=== PATIENT | male | born 1945 | race Caucasian/White ===

== ENCOUNTER 2018-04-01 17:17 | Emergency (ER) | payer OTHER ==
[~2018-04-01 17:17] MED LIST: ISOVUE-370 76%-LOCM 1 ML ONE
--- NOTE | 2018-04-01 17:53 | RAD ---
FRONTAL RADIOGRAPH CHEST 04/01/18 COMPARISON: None. HISTORY: Chest pain. FINDINGS: Multiple old left sided inferior/lateral posterior rib fractures. No pneumothorax, pleural fluid, lob ar consolidation or alveolar edema. IMPRESSION: Multiple old left sided rib fractures. No acute findings. POS: [facility]
[2018-04-01 18:51] LABS: #Eosinphils 0.2 thou/uL (0.0-0.7); #Lymphocytes 1.2 thou/uL (1.20-3.40); #Monocytes 0.7 thou/uL (0.11-0.59); #Neutrophils 5.1 thou/uL (1.40-6.50); %Basophils 0.4 % (0.0-1.0); %Eosinophils 2.7 % (0.0-10.0); %Lymphocytes 16.6 % (21.0-51.0); %Monocytes 9.7 % (0.0-10.0); %Neutrophils 70.7 % (42.0-75.0); Hemoglobin 9.4 g/dL (14.0-18.0); Mean Corpuscular HGB CONC 32.3 g/dL (32.0-36.0); Mean Corpuscular Hemoglobin 30.6 pg (27.0-31.0); Mean Corpuscular Volume 94.8 fL (78.0-98.0); Mean Platelet Volume 9.1 fL (7.4-10.4); Platelet Count 183 thou/uL (130-400); Red Blood Cell (RBC) Count 3.08 mill/uL (4.70-6.10); White Blood Cell (WBC) Count 7.2 thou/uL (4.8-10.8)
[2018-04-01 19:15] LABS: ALT (SGPT) 14 U/L (8-55); AST (SGOT) 14 U/L (5-34); Albumin 3.9 g/dL (3.4-4.8); Alkaline Phosphatase 106 U/L (40-150); Anion Gap 12 mmol/L (10-20); BUN (Urea Nitrogen) 17 mg/dL (8.4-25.7); Bilirubin, Total 0.2 mg/dL (0.2-1.2); CK (CPK) 133 U/L (30-200); Calc. Creatinine Clearance 0 mL/min (70-130); Calcium 8.5 mg/dL (7.8-10.44); Carbon Dioxide 26 mmol/L (23-31); Chloride 94 mmol/L (98-107); Estimated GFR-MDRD 48; Globulin 2.3 g/dL (2.4-3.5); Glucose 122 mg/dL (83-110); Lipase 31 U/L (8-78); Potassium 4.7 mmol/L (3.5-5.1); Protein, Total 6.2 g/dL (5.8-8.1); Sodium 127 mmol/L (136-145)
[2018-04-01] MEDS ORDERED: Enoxaparin Sodium 100 MG/ML SYRINGE ONE (20:36)
--- NOTE | 2018-04-01 21:26 | CT ---
CT ANGIOGRAM OF THE CHEST: 04/01/18 COMPARISON: None. HISTORY: Chest pain. TECHNIQUE: Axial CT imaging at 2.5 mm intervals from the thoracic inlet through the upper abdomen with IV contra st using a CT angiogram protocol. Coronal and oblique sagittal 3D reformatted imaging obtained. FINDINGS: Cholelithiasis suspected on axial image 133. No pleural, pericardial, or mediastinal fluid. Atheroscl erotic calcification at the level of the aortic valve, aortic arch, and coronary arteries noted. No axillary, mediastinal, or hilar adenopathy. No central pulmonary arterial filling defect seen to suggests pulmonary arterial embolism. Motion art ifact limits detailed assessment of the distal pulmonary arteries, particularly in the lung bases. No pneumothorax seen on either side. Mild linear density in the lingula suggests scar and/or volume loss. Evaluation of bilateral lower lobes is limited on the basis of respiratory motion artifact. Linear de nsity in the medial inferior right middle lobe suggests scar and/or volume loss. There are multiple old left sided rib fractures. IMPRESSION: No evidence for pulmonary arterial embolism. Numerous additional findings as described above. POS: [facility]
--- NOTE | 2018-04-05 00:05 | EKG ---
Test Reason : ER INDICATION Blood Pressure : / mmHG Vent. Rate : 070 BPM Atrial Rate : 059 BPM P-R Int : 000 ms QRS Dur : 072 ms QT Int : 394 ms P-R-T Axes : 000 055 075 degrees QTc Int : 425 ms Poor data quality, interpretation may be adversely affected Atrial fibrillation with a competing junctional pacemaker Abnormal ECG Confirmed by SHYANN MARTINEZ, CAMILO ([id number]), movie editor TIFFANIE CARDONA ([id number]) on 04/05/2018 12:04:20 AM Referred By: Confirmed By:CAMILO BOOTHE MD
== END 2018-04-02 00:33 | disposition short-term general hospital (02) ==
LOC: ERS 17:17
DX: I20.0 Unstable angina (principal); J44.9 Chronic obstructive pulmonary disease, unspecified; I10 Essential (primary) hypertension; Z79.82 Long term (current) use of aspirin; Z79.899 Other long term (current) drug therapy
CPT/HCPCS: 36415; 71045; 71275; 80053; 82550; 83690; 83880; 84484; 85025; 85379; 93005; 96360; 96361; 96372; J1650

== ENCOUNTER 2018-06-01 06:28 | Inpatient (IN) | payer OTHER ==
[2018-06-01] MEDS ORDERED: Ketorolac Tromethamine 30 MG/ML VIAL ONE (07:01)
[2018-06-01] MEDS ORDERED: Nitroglycerin 2% Ointment 1 INCH/1 GM Packet ONE (07:01)
[2018-06-01 07:11] LABS: #Basophils 0.1 thou/uL (0.0-0.2); #Eosinphils 0.2 thou/uL (0.0-0.7); #Lymphocytes 1.5 thou/uL (1.20-3.40); #Monocytes 1.1 thou/uL (0.11-0.59); %Basophils 0.6 % (0.0-1.0); %Eosinophils 1.5 % (0.0-10.0); %Lymphocytes 14.2 % (21.0-51.0); %Monocytes 9.9 % (0.0-10.0); %Neutrophils 73.8 % (42.0-75.0); Hemoglobin 7.9 g/dL (14.0-18.0); Mean Corpuscular HGB CONC 32.8 g/dL (32.0-36.0); Mean Corpuscular Hemoglobin 29.2 pg (27.0-31.0); Mean Corpuscular Volume 89.1 fL (78.0-98.0); Mean Platelet Volume 8.2 fL (7.4-10.4); Platelet Count 213 thou/uL (130-400); RBC Distribution Width 12.5 % (11.5-14.5); Red Blood Cell (RBC) Count 2.71 mill/uL (4.70-6.10); White Blood Cell (WBC) Count 10.9 thou/uL (4.8-10.8)
[2018-06-01 07:31] LABS: ALT (SGPT) 17 U/L (8-55); AST (SGOT) 20 U/L (5-34); Albumin 3.8 g/dL (3.4-4.8); Alkaline Phosphatase 113 U/L (40-150); Anion Gap 11 mmol/L (10-20); BUN (Urea Nitrogen) 16 mg/dL (8.4-25.7); Bilirubin, Total 0.5 mg/dL (0.2-1.2); Calc. Creatinine Clearance 0 mL/min (70-130); Calcium 8.4 mg/dL (7.8-10.44); Carbon Dioxide 31 mmol/L (23-31); Chloride 81 mmol/L (98-107); Estimated GFR-MDRD 76; Globulin 2.4 g/dL (2.4-3.5); Glucose 100 mg/dL (83-110); Lipase 35 U/L (8-78); Potassium 3.7 mmol/L (3.5-5.1); Protein, Total 6.2 g/dL (5.8-8.1)
[2018-06-01 07:43] LABS: Bilirubin Negative (Negative); Blood, Urine Negative (Negative); Clarity CLEAR (Clear); Glucose, Urine (Dipstick) Negative (Negative); Leukocyte Moderate (Negative); Nitrite Negative (Negative); Protein, Urine (Dipstick) Negative (Neg-Trace); Specific Gravity, Urine 1.006 (1.002-1.036); Urobilinogen 0.2 mg/dL (0.2-1.0); pH, Urine 7.5 (5.0-9.0)
[2018-06-01 07:45] LABS: Sodium 119 mmol/L (136-145)
[2018-06-01 07:46] LABS: Bacteria/HPF 4+ HPF (None Seen); Hyaline Casts/LPF 0-3 HYALINE CAST LPF (0-3 Hyaline); RBC/HPF 0-3 HPF (0-3); Squamous Epithelial 0-3 HPF (0-3)
[2018-06-01] MEDS ORDERED: Ondansetron ODT 4 MG TAB PO PRN (08:41)
[2018-06-01] MEDS ORDERED: Acetaminophen 325 MG TAB PO PRN (08:41)
[2018-06-01] MEDS ORDERED: Zolpidem Tartrate 5 MG TAB PO PRN (08:41)
--- NOTE | 2018-06-01 08:46 | RAD ---
SINGLE VIEW OF THE CHEST: COMPARISON: 04/01/2018. HISTORY: Chest pain. FINDINGS: Single view of the chest shows a normal sized cardiomediastinal silhouette. There is no evidence of c onsolidation, mass, or pleural effusion. There are remote left rib fractures. IMPRESSION: No evidence of acute cardiopulmonary disease. POS: [facility]
[2018-06-01] MEDS ORDERED: Nitroglycerin 0.4 MG TAB (25 Tab Bottle) SL PRN (08:59)
[2018-06-01 09:25] LABS: Iron 37 ug/dL (65-175); Iron Binding Capacity, Total 315 mcg/dL (261-462)
--- NOTE | 2018-06-01 09:58 | HP ---
CHIEF COMPLAINT: City call admission for [facility]. The patient is a prisoner at a local [facility] facility. The patient referred to [facility] Hospitalist Service for chest pain, anemia, hypothyroidism. By history, his chest pain is a 7/10. It started at 2 a.m. He says it feels like a 6-pound paper weight on his chest. He has had chronic shortness of breath. No sweats. No radiation. PAST MEDICAL HISTORY: Pertinent for PCI x2 last 15 years ago for coronary artery disease. He has a history of atrial fib, history of COPD, history of hypertension. CURRENT MEDICATIONS: 1. Aspirin 81 mg a day. 2. Diltiazem 180 mg a day. 3. Dulera 100/5 two puffs b.i.d. 4. Omeprazole 20 mg a day. 5. Pravastatin 80 mg a day. 6. Proventil 2 puffs four times a day p.r.n. 7. Terazosin 2 mg a day. 8. Spiriva HandiHaler one puff daily. ALLERGIES: NO KNOWN DRUG ALLERGIES. PAST SURGICAL HISTORY: He has had a left cataract surgery x2 with implants, appendectomy, right knee arthroplastic surgery. FAMILY HISTORY: No coronary artery disease, hypertension, etc. The patient . No next of kin named. Full code status. He quit smoking 12 years ago, apparently at the time of his incarceration. He has had no alcohol. REVIEW OF SYSTEMS: HEAD: No headaches, dizziness, fever, chills. EYES: No double vision, blurred vision, flashing lights. EARS, NOSE, AND THROAT: He does have poor vision in his left eye post surgeries. CARDIAC: He has no recent chest pain other than that today. No orthopnea. No paroxysmal nocturnal dyspnea. RESPIRATIONS: Chronic shortness of breath. No cough. No wheezing. GASTROINTESTINAL: No nausea, vomiting, diarrhea, or constipation. GENITOURINARY: No hematuria, dysuria, or nocturia. MUSCULOSKELETAL: He has occasional leg cramps night and day. No other pain. He has some mild swelling in his legs. NEUROLOGICAL: No strokes, seizures, or focal weakness. PSYCHIATRIC: He gives no history of anxiety or depression. SKIN: No bruising, bleeding, or rash. HEME/LYMPH: No tender or swollen lymph nodes in the axilla, inguinal, or cervical area. PHYSICAL EXAMINATION: GENERAL: He is alert, fair historian, oriented to person, place, and time. VITAL SIGNS: Blood pressure 121/48, pulse 57, respirations 19. Pain is rated as 7. He has O2 saturation of 98 on 2 L. HEENT: Examination of his head, eyes, ears, nose, and throat reveals right pupil round and reactive. Left pupil is severely deformed, nonreactive. Extraocular movements are intact. Sclerae are white. Tympanic membranes are clear. Nose is clear. Oral mucous membranes are wet. He has multiple missing teeth and caries in the several teeth that are still present. NECK: No jugular venous distention, adenopathy, or thyromegaly. CHEST: Clear to auscultation and percussion. HEART: Has a regular rate and rhythm. First and second heart sounds are clear. There are no appreciated murmurs or gallops. ABDOMEN: Soft. Bowel sounds are normal. There is no hepatosplenomegaly. No mass. No rebound or bruits. EXTREMITIES: Reveal 1 to 2+ edema with no cyanosis or clubbing. HEME/LYMPH: No tender or swollen lymph nodes in axilla, inguinal, or cervical area. NEUROLOGICAL: Cranial nerves 2 through 12 are intact, except for the left pupillary response. Deep tendon reflexes symmetric. Moves all extremities. IMAGING STUDIES: Chest x-ray reviewed by me some hyperinflation, no cardiomegaly, some chronic appearing changes. No distinct mass. No infiltrates of note. There are evidence of healed fractured ribs on the left. EKG normal, reviewed by me. LABORATORY DATA: CBC; white count 10.9, hemoglobin 7.9 with normocytic normochromic indices, platelet count is 213,000. Urine showed 4 to 6 white cells. Sodium 119, potassium 3.7, chloride 81, BUN 16, creatinine 0.97. Liver profile normal. Cardiac enzyme normal. ADMITTING DIAGNOSES: Chest pain, history of coronary artery disease with percutaneous coronary intervention, hyponatremia, anemia, chronic obstructive pulmonary disease, hypertension. PLAN: Nitrates. Serial enzymes, probable eventual stress test. Serial H and H q.6 hours. Stool for occult blood. Repeat basic metabolic profile q.12 hours. Start normal saline at 75 mL an hour. Complicated patient. May need endoscopy studies as he is a prisoner. [facility] in [place] was called and declined to accept the patient. Job ID: [id number] [facility]
[2018-06-01 11:10] LABS: Troponin I Less than 0.010 ng/mL (< 0.028)
[2018-06-01 11:54] LABS: Anion Gap 10 mmol/L (10-20); BUN (Urea Nitrogen) 16 mg/dL (8.4-25.7); Calc. Creatinine Clearance 0 mL/min (70-130); Calcium 8.1 mg/dL (7.8-10.44); Carbon Dioxide 26 mmol/L (23-31); Chloride 84 mmol/L (98-107); Estimated GFR-MDRD 77; Glucose 100 mg/dL (83-110); Potassium 3.9 mmol/L (3.5-5.1)
[2018-06-01 11:59] LABS: Sodium 116 mmol/L (136-145)
[2018-06-01 15:13] LABS: Troponin I Less than 0.010 ng/mL (< 0.028)
[2018-06-01 22:59] VITALS: BMI 34.0
[2018-06-01] MEDS: Sodium Chloride 0.9% 1,000 ML IV SCH (23:08)
[2018-06-02] MEDS: Aspirin 325 mg Enteric Coated Tablet PO SCH ×2 (00:42→08:22)
[2018-06-02] MEDS: Sodium Chloride 0.9% 1,000 ML IV SCH (00:43)
[2018-06-02 06:40] LABS: #Eosinphils 0.2 thou/uL (0.0-0.7); #Monocytes 0.8 thou/uL (0.11-0.59); #Neutrophils 6.9 thou/uL (1.40-6.50); %Basophils 0.5 % (0.0-1.0); %Eosinophils 2.6 % (0.0-10.0); %Lymphocytes 11.5 % (21.0-51.0); %Monocytes 9.2 % (0.0-10.0); %Neutrophils 76.2 % (42.0-75.0); Hemoglobin 8.7 g/dL (14.0-18.0); Mean Corpuscular HGB CONC 32.1 g/dL (32.0-36.0); Mean Corpuscular Hemoglobin 28.7 pg (27.0-31.0); Mean Corpuscular Volume 89.3 fL (78.0-98.0); Mean Platelet Volume 8.3 fL (7.4-10.4); Platelet Count 224 thou/uL (130-400); RBC Distribution Width 12.8 % (11.5-14.5); Red Blood Cell (RBC) Count 3.03 mill/uL (4.70-6.10)
[2018-06-02 06:42] LABS: Hemoglobin 8.5 g/dL (14.0-18.0); Platelet Count 230 thou/uL (130-400)
[2018-06-02 07:02] LABS: Anion Gap 11 mmol/L (10-20); BUN (Urea Nitrogen) 13 mg/dL (8.4-25.7); Calc. Creatinine Clearance 80 mL/min (70-130); Carbon Dioxide 29 mmol/L (23-31); Chloride 95 mmol/L (98-107); Estimated GFR-MDRD 75; Glucose 94 mg/dL (83-110); Potassium 3.9 mmol/L (3.5-5.1); Sodium 131 mmol/L (136-145)
[2018-06-02 11:47] LABS: Hemoglobin 9.2 g/dL (14.0-18.0); Platelet Count 262 thou/uL (130-400)
[2018-06-02 11:58] LABS: Sodium 135 mmol/L (136-145)
[2018-06-02 18:14] LABS: Hemoglobin 8.7 g/dL (14.0-18.0); Platelet Count 247 thou/uL (130-400)
--- NOTE | 2018-06-02 18:59 | PDOC.PN ---
- Subjective Encounter Start Date: 06/02/18 Encounter Start Time: 09:00 Pt seen for followup re: chest pain. Reports SOBOE, chronic. No fevers or chills. - Objective Resuscitation Status - Order Detail: 06/01/18 08:38 Resuscitation Status Routine Resuscitation Status: FULL: Full Resuscitation MAR Reviewed: Yes Vital Signs & Weight: Vital Signs (12 hours) Temp Pulse Resp BP BP BP Pulse Ox 06/02/18 18:53 81 16 97 06/02/18 16:55 98.2 F 79 18 158/69 H 98 06/02/18 14:00 79 18 95 06/02/18 12:25 98.0 F 95 18 148/63 H 100 06/02/18 10:15 75 18 94 L 06/02/18 08:19 98.0 F 85 18 160/95 H 97 Weight Weight 183 lb 4.8 oz I&O: 06/01/18 06/02/18 06/03/18 06:59 06:59 06:59 Intake Total 825 Output Total 2900 Balance -2074 Result Diagrams: 06/02/18 18:05 06/02/18 11:32 EKG Reviewed by me: Yes (Tele: NSR) Phys Exam - Physical Examination Obese HEENT: moist MMs, sclera anicteric, oral pharynx no lesions, 2+ tonsils Neck: no nodes, no JVD, supple, full ROM Respiratory: clear to auscultation bilateral Cardiovascular: RRR, no rub S1, S2 Gastrointestinal: soft, non-tender, no distention, positive bowel sounds Neurological: moves all 4 limbs Psychiatric: normal affect, A&O x 3 Dx/Plan (1) Chest pain Code(s): R07.9 - CHEST PAIN, UNSPECIFIED Status: Acute Comment: Improved, may need stress test when respiratory status improves (2) COPD exacerbation Code(s): J44.1 - CHRONIC OBSTRUCTIVE PULMONARY DISEASE W (ACUTE) EXACERBATION Status: Acute Comment: continue oxygen and bronchodilators, add steroids (3) Hyponatremia Code(s): E87.1 - HYPO-OSMOLALITY AND HYPONATREMIA Status: Acute Comment: Improving (4) HTN (hypertension) Code(s): I10 - ESSENTIAL (PRIMARY) HYPERTENSION Status: Chronic Comment: Monitor vital signs, titrate antihypertensives as needed (5) Dyslipidemia Code(s): E78.5 - HYPERLIPIDEMIA, UNSPECIFIED Status: Chronic Comment: stable (6) BPH (benign prostatic hyperplasia) Code(s): N40.0 - BENIGN PROSTATIC HYPERPLASIA WITHOUT LOWER URINRY TRACT SYMP Status: Chronic Comment: stable (7) GERD (gastroesophageal reflux disease) Code(s): K21.9 - GASTRO-ESOPHAGEAL REFLUX DISEASE WITHOUT ESOPHAGITIS Status: Chronic Comment: stable (8) Chronic anemia Code(s): D64.9 - ANEMIA, UNSPECIFIED Status: Chronic Comment: monitor counts - Plan * . Review of Systems - Review of Systems Constitutional: other. negative: fever, chills, sweats, weakness, malaise Respiratory: SOB with Excertion. negative: Cough, Shortness of Breath, Pleuritic Pain, Wheezing Cardiovascular: chest pain. negative: palpitations, orthopnea, paroxysmal nocturnal dyspnea, edema, light headedness Gastrointestinal: negative: Nausea, Vomiting, Abdominal Pain, Diarrhea, Constipation, Melena, Hematochezia Genitourinary: negative: Dysuria, Frequency, Incontinence, Hematuria, Retention Skin: negative: Rash, Lesions, Huy, Bruising - Medications/Allergies Allergies/Adverse Reactions: Allergies Allergy/AdvReac Type Severity Reaction Status Date / Time No Known Drug Allergies Allergy Verified 06/01/18 23:07 Medications: Current Medications Acetaminophen (Tylenol) 650 mg PO Q4H PRN PRN Reason: Headache/Fever/Mild Pain (1-3) Albuterol/Ipratropium (Duoneb) 3 ml NEB [id number] PRN PRN Reason: SOB &/or Wheezing Last Admin: 06/02/18 10:15 Dose: 3 ml Albuterol/Ipratropium (Duoneb) 3 ml NEB [id number] [facility] Last Admin: 06/02/18 18:53 Dose: 3 ml Aspirin (Ecotrin) 325 mg PO DAILY [facility] Last Admin: 06/02/18 08:22 Dose: 325 mg Nitroglycerin (Nitrostat) 0.4 mg SL Q5MIN PRN PRN Reason: Chest Pain Ondansetron HCl (Zofran Odt) 4 mg PO Q6H PRN PRN Reason: Nausea/Vomiting Sodium Chloride (Flush - Normal Saline) 10 ml IVF Q12HR [facility] Last Admin: 06/02/18 08:22 Dose: Not Given Zolpidem Tartrate (Ambien) 5 mg PO HSPRN PRN PRN Reason: Insomnia
--- NOTE | 2018-06-02 19:07 | CON ---
DATE OF CONSULTATION: REASON FOR CONSULTATION: Shortness of breath and chest pain. HISTORY OF PRESENT ILLNESS: Mr. Shell is a 72-year-old gentleman, who is currently incarcerated. He recently complained of not feeling well. He had increased shortness of breath, that was his main complaint. He has associated lower chest discomfort. When trying to discuss previous coronary history with Mr. Shell, he states he has atrial fibrillation, but has not been on anticoagulation therapy. He also is unsure whether he has had stent placement. He did state he had angioplasty 15 years ago. At that time, small stent placement was being performed. His CK troponin was negative. His EKG is normal. He also has a hemoglobin of 7.9. PAST MEDICAL HISTORY: ? CAD, atrial fibrillation, COPD, and hypertension. HOME MEDICATIONS: Include Dulera, diltiazem, aspirin, omeprazole, pravastatin, Proventil, and terazosin. ALLERGIES: NONE. PAST SURGICAL HISTORY: Cataract surgery, appendectomy, knee surgery. REVIEW OF SYSTEMS: Ten-point review of systems is reviewed and as above, otherwise negative. PHYSICAL EXAMINATION: VITAL SIGNS: Blood pressure 148/63, pulse 95, temperature 98. GENERAL: The patient is obese, who is in no acute distress. The patient appears their stated age. NEUROLOGIC: The patient is alert and oriented x3 with no focal neurologic deficits. HEENT: Sclerae without icterus. Mouth has moist mucous membranes with normal pallor. NECK: No JVD. Carotid upstroke brisk. No bruits bilaterally. LUNGS: Auditory wheezing present. BACK: No scoliosis or kyphosis. CARDIAC: Regular rate and rhythm with normal S1 and S2. No S3 or S4 noted. No significant rubs, murmurs, thrills, or gallops noted throughout the precordium. PMI is not displaced. There is no parasternal heave. ABDOMEN: Soft, nontender, nondistended. No peritoneal signs present. No hepatosplenomegaly. No abnormal striae. EXTREMITIES: 2+ femoral and 2+ dorsalis pedis pulses. No cyanosis, clubbing, or edema. SKIN: No gross abnormalities. PERTINENT LABORATORY DATA: Hemoglobin 7.9. Creatinine 0.99. Initial sodium 116 up to 131. IMPRESSION: 1. Shortness of breath and chest pain. 2. Anemia. 3. ? Coronary artery disease. 4. ? atrial fibrillation. RECOMMENDATIONS: Mr. Shell does have anemia present. His current history on atrial fibrillation and coronary artery disease with stent placement is unknown. The history around this is vague. He is not on medical therapy for either. He does have auditory wheezing, likely has a chronic obstructive pulmonary disease exacerbation. Given normal enzymes and normal EKG, his symptoms are unlikely related to unstable angina. I would recommend conservative therapy. I will need a GI workup. BNP was also 161, and his most recent echo today showed LVEF 50% to 55%. Job ID: [id number]
[2018-06-02] MEDS: methylPREDNISolone Sod Succ 40 MG VIAL IVP SCH (20:25)
[2018-06-03] MEDS: methylPREDNISolone Sod Succ 40 MG VIAL IVP SCH ×3 (02:50→14:51)
--- NOTE | 2018-06-03 06:05 | PDOC.CTH ---
Cardiology Progress Note - Subjective Still with SOB and wheezing although better. No CP - Objective Vital Signs Temp Pulse Resp BP BP Pulse Ox 06/03/18 03:35 97.9 F 84 16 139/63 97 06/03/18 00:23 85 18 96 06/03/18 00:00 158/65 H 06/02/18 19:42 98 06/02/18 19:40 98.4 F 77 16 157/81 H 98 06/02/18 18:53 81 16 97 Weight 180 lb 4.8 oz 06/01/18 06/02/18 06/03/18 06:59 06:59 06:59 Intake Total 1755 Output Total 3450 Balance -1695 - Physical Examination General/Neuro: alert & oriented x3, NAD Neck: carotid US brisk, no JVD present Lungs: CTA, unlabored respirations Heart: PMI normal, RRR Abdomen: NT/ND, soft, other: Extremities: + femoral B - Telemetry Telemetry Rhythm: SR - Labs Result Diagrams: 06/02/18 18:05 06/02/18 11:32 Troponin/CKMB Troponin I Less than 0.010 ng/mL (< 0.028) 06/01/18 14:28 - Assessment/Plan CP ?CAD Anemai COPD exacerbation CV status stable Unknown if pt truly has CAD. Cannot acertain based on history Hold ASA for now CP not felt to be cardiac; atypical and normal CKMB, trop, echo and EKG Treat COPD No further recommendations; atypical symptoms and do not fgeel a stress test appropriate given active wheezing and anemia. Will follow peripherally
[2018-06-03] MEDS: Aspirin 325 mg Enteric Coated Tablet PO SCH (09:35)
[2018-06-03 14:37] VITALS: BP 160/84; TEMP 97.3
--- NOTE | 2018-06-03 18:12 | DIS ---
DATE OF ADMISSION: 06/01/2018 DATE OF DISCHARGE: 06/03/2018 PRIMARY CARE PROVIDER: Unknown. DISCHARGE DIAGNOSES: 1. Acute bronchitis. 2. Hyponatremia. 3. Chest pain, most likely musculoskeletal in etiology. CONDITION OF PATIENT ON THE DAY OF DISCHARGE: Stable. I assessed Mr. Shell on the day of discharge. He denies any chest pain. Shortness of breath is better. Vital signs are stable. S1 and S2 are heard, regular. Lungs are clear to auscultation bilaterally. DISCHARGE MEDICATIONS: 1. Proventil HFA 2 puffs every 6 hours as needed. 2. Ventolin nebulizers 3 mL two times a day. 3. Amlodipine 10 mg daily. 4. Aspirin 81 mg daily. 5. Atorvastatin 80 mg at bedtime. 6. Colace 100 mg daily. 7. Hydrochlorothiazide 25 mg daily. 8. Atrovent 2.5 mL nebulizer 4 times a day as needed. 9. Lactulose 20 mg 2 times a day. 10. Metoprolol tartrate 25 mg 2 times a day. 11. Dulera 100/5 mcg 2 puffs two times a day. 12. Omeprazole 20 mg daily. 13. Saline nasal spray 3 times a day. 14. Terazosin 2 mg at bedtime. 15. Spiriva 18 mcg inhalation daily. 16. Warfarin 5 mg daily. 17. Keflex 250 mg 4 times a day. 18. Prednisone taper. CONSULTATIONS DURING THIS HOSPITALIZATION: Cardiology, Salvatore Butler MD HOSPITAL COURSE: Mr. Shell is a pleasant 72-year-old gentleman, who was admitted to [facility] on June 01, 2018, for chest pain and hyponatremia. Please refer to Dr. Cramer' history and physical note dated June 01, 2018, for further details. He received intravenous fluids with improvement in his sodium level. A 2D echocardiogram showed left ventricular ejection fraction of 50% to 55%, and E/A flow reversal suggestive of diastolic dysfunction. He had normal right ventricular structure and function. He was seen by Cardiology Service, who felt that his chest pain was atypical for cardiac pain. They recommended treating his COPD exacerbation. He improved with oxygen, steroids, and bronchodilators. He is also being started on antibiotics prior to discharge back to [facility]. Many thanks for allowing me to participate in Mr. Shell's care. Please feel free to contact me with any questions or concerns. On June 02, he had sodium 135, potassium 3.9, creatinine 0.99, white count 9000, hemoglobin 8.7, and platelet count 224,000. DISCHARGE DESTINATION: [facility], from where patient was admitted to the hospital. TIME SPENT: Total amount of time spent coordinating this discharge: 33 minutes. Job ID: [id number]
== END 2018-06-03 20:36 | DRG 191 ==
LOC: EEVIPCON 06:28 → ERS 06:28 → ERHOLD 08:38 → 2NO 22:32
PROVIDERS: ADMIT Internal Medicine; ATTEND Internal Medicine
DX: J44.1 Chronic obstructive pulmonary disease with (acute) exacerbation (principal); E87.1 Hypo-osmolality and hyponatremia; J44.0 Chronic obstructive pulmonary disease with (acute) lower respiratory infection; J20.9 Acute bronchitis, unspecified; R07.89 Other chest pain; E03.9 Hypothyroidism, unspecified; I10 Essential (primary) hypertension; D64.9 Anemia, unspecified; N40.0 Benign prostatic hyperplasia without lower urinary tract symptoms; E78.5 Hyperlipidemia, unspecified; K21.9 Gastro-esophageal reflux disease without esophagitis; Z79.82 Long term (current) use of aspirin; Z79.51 Long term (current) use of inhaled steroids; Z98.42 Cataract extraction status, left eye; Z90.49 Acquired absence of other specified parts of digestive tract; Z98.890 Other specified postprocedural states
CPT/HCPCS: 36415; 71045; 80048; 80053; 81003; 81015; 82274; 83540; 83550; 83690; 83880; 84484; 85025; 93005; 93306; 94640; 94760; 96361; 96374; J1885; J2920; J7620

== ENCOUNTER 2018-09-16 19:07 | Emergency (ER) | payer OTHER ==
[2018-09-16] MEDS ORDERED: methylPREDNISolone Sod Succ/PF 125 MG/2 ML VIAL ONE (19:35)
[2018-09-16] MEDS ORDERED: Magnesium 2 GM/50 ML BAG (IN WATER) ONE (19:35)
[2018-09-16 19:49] LABS: Hemoglobin 7.7 g/dL (14.0-18.0); Mean Corpuscular HGB CONC 28.1 g/dL (32.0-36.0); Mean Corpuscular Hemoglobin 23.1 pg (27.0-31.0); Mean Corpuscular Volume 82.2 fL (78.0-98.0); Mean Platelet Volume 9.2 fL (7.4-10.4); Platelet Count 242 thou/uL (130-400); RBC Distribution Width 19.4 % (11.5-14.5); Red Blood Cell (RBC) Count 3.33 mill/uL (4.70-6.10); White Blood Cell (WBC) Count 16.6 thou/uL (4.8-10.8)
--- NOTE | 2018-09-16 19:50 | RAD ---
PORTABLE CHEST ONE VIEW: 09/16/18 at 7:19 p.m. HISTORY: COPD, dyspnea. FINDINGS: Comparison mad with exam of 06/01/18. The heart is enlarged. There are bibasilar infiltrates. No pneum othoraces or large effusions are seen. There are old left sided rib fractures. IMPRESSION: Findings suspicious for bibasilar pneumonia. POS: [facility]
[2018-09-16 19:53] LABS: PTT 26.4 SEC (22.9-36.1); Prothrombin Time 13.3 SEC (12.0-14.7)
[2018-09-16 20:08] LABS: #Eosinphils 0.1 thou/uL (0.0-0.7); #Lymphocytes 0.8 thou/uL (1.20-3.40); #Neutrophils 13.7 thou/uL (1.40-6.50); %Basophils 0.3 % (0.0-1.0); %Eosinophils 0.5 % (0.0-10.0); %Lymphocytes 4.7 % (21.0-51.0); %Monocytes 12.1 % (0.0-10.0); %Neutrophils 82.5 % (42.0-75.0); ALT (SGPT) 17 U/L (8-55); AST (SGOT) 16 U/L (5-34); Alkaline Phosphatase 103 U/L (40-150); Anion Gap 14 mmol/L (10-20); BUN (Urea Nitrogen) 34 mg/dL (8.4-25.7); Bilirubin, Total 0.5 mg/dL (0.2-1.2); Calc. Creatinine Clearance 0 mL/min (70-130); Calcium 9.1 mg/dL (7.8-10.44); Carbon Dioxide 37 mmol/L (23-31); Chloride 95 mmol/L (98-107); Elliptocytes SLIGHT = 2-5 cells (100X) (0-1/hpf); Estimated GFR-MDRD 34; Globulin 3.1 g/dL (2.4-3.5); Glucose 136 mg/dL (83-110); Hypochromia MODERATE=16-30 cells (100X) (0-5/hpf); MDiff Complete? YES; Ovalocytes SLIGHT = 2-5 cells (100X) (0-1/hpf); Platelet Morphology Comment Appears Adequate; Polychromasia SLIGHT = 2-3 cells (100X) (0-2/hpf); Potassium 4.8 mmol/L (3.5-5.1); Protein, Total 7.1 g/dL (5.8-8.1); Reflex for Review?? YES; Sodium 141 mmol/L (136-145); Stomatocytes SLIGHT = 2-5 cells (100X) (0-1/hpf)
[2018-09-16] MEDS ORDERED: Piperacillin/Tazobactam 4.5 GM VIAL ONE (20:09)
[2018-09-16 20:12] LABS: Analyzer IN Cardio ER; Base Excess (BEa) 5.9 mEq/L (-2.0 to +3.0); Calcium, Ionized 1.09 mmol/L (1.12-1.30); Carboxyhemoglobin (COHb) 1.3 gm% (0.0-3.0); Hemoglobin (Hb) 7.6 g/dL (14.0-18.0); O2 Tension (PaO2) 267.7 mmHg (> 70.0); Potassium - ABG Lab 4.17 mmol/L (3.70-5.30); pH, Arterial 7.26 (7.35-7.45)
[2018-09-16 20:13] LABS: CO2 Tension 77.3 mmHg (35.0-45.0); Puncture Site RRA
[2018-09-16 20:14] LABS: ALV-art Gradient 348.675 (0-20)
[2018-09-16] MEDS ORDERED: Vancomycin HCl 1.5 GM in Sodium Chloride 0.9% 250 ML 300 ML IVPB ONE (20:15)
[2018-09-16] MEDS ORDERED: Enoxaparin Sodium 100 MG/ML SYRINGE ONE (22:39)
== END 2018-09-17 00:11 | disposition short-term general hospital (02) ==
LOC: EEVIPCON 19:07 → ERS 19:07
DX: A41.9 Sepsis, unspecified organism (principal); J18.9 Pneumonia, unspecified organism; I48.91 Unspecified atrial fibrillation; J96.92 Respiratory failure, unspecified with hypercapnia; I25.10 Atherosclerotic heart disease of native coronary artery without angina pectoris; Z79.82 Long term (current) use of aspirin; Z79.899 Other long term (current) drug therapy
CPT/HCPCS: 71045; 80053; 82805; 83605; 83880; 84484; 85025; 85060; 85610; 85730; 87040; 93005; 94640; 94660; 94760; 96365; 96366; 96367; 96368; 96372; 96375; 96376; 99292; J1650; J1956; J2543; J2930; J3370; J3475; J3490; J7050; J7620

== ENCOUNTER 2021-02-12 13:59 | Inpatient (IN) | payer OTHER, SELFPAY ==
[2021-02-12] MEDS ORDERED: Albuterol Sulfate 1.25 MG/3 ML NEB ONE (14:18)
[2021-02-12] MEDS ORDERED: Ipratropium Bromide 2.5 ml Neb ONE ×2 (14:18→14:28)
[2021-02-12] MEDS ORDERED: methylPREDNISolone Sod Succ/PF 125 MG/2 ML VIAL ONE (14:18)
[2021-02-12] MEDS ORDERED: Magnesium 2 GM/50 ML BAG (IN WATER) ONE (14:18)
[2021-02-12] MEDS ORDERED: Albuterol Sulfate 2.5 mg/3 ml Neb ONE (14:28)
[2021-02-12 14:31] LABS: #Eosinphils 0.1 thou/uL (0.0-0.7); #Neutrophils 9.7 thou/uL (1.40-6.50); %Basophils 0.4 % (0.0-1.0); %Eosinophils 1.1 % (0.0-10.0); %Lymphocytes 8.6 % (21.0-51.0); %Monocytes 8.5 % (0.0-10.0); %Neutrophils 81.4 % (42.0-75.0); Hemoglobin 10.5 g/dL (14.0-18.0); Mean Corpuscular HGB CONC 31.4 g/dL (32.0-36.0); Mean Corpuscular Hemoglobin 30.9 pg (27.0-31.0); Mean Corpuscular Volume 98.3 fL (78.0-98.0); Platelet Count 239 thou/uL (130-400); RBC Distribution Width 12.8 % (11.5-14.5); Red Blood Cell (RBC) Count 3.41 mill/uL (4.70-6.10)
[2021-02-12 15:00] LABS: ALT (SGPT) 20 U/L (8-55); AST (SGOT) 27 U/L (5-34); Albumin 3.8 g/dL (3.4-4.8); Alkaline Phosphatase 123 U/L (40-110); BUN (Urea Nitrogen) 33 mg/dL (8.4-25.7); Bilirubin, Total 0.5 mg/dL (0.2-1.2); Calc. Creatinine Clearance 0 mL/min (70-130); Calcium 9.7 mg/dL (7.8-10.44); Globulin 3.8 g/dL (2.4-3.5); Glucose 119 mg/dL (83-110); Protein, Total 7.6 g/dL (5.8-8.1)
[2021-02-12 15:11] LABS: Anion Gap 18 mmol/L (10-20); Carbon Dioxide 39 mmol/L (23-31); Chloride 84 mmol/L (98-107); Potassium 5.4 mmol/L (3.5-5.1); Sodium 136 mmol/L (136-145)
[2021-02-12] MEDS ORDERED: Furosemide 40 MG/4 ML VIAL ONE (15:39)
[2021-02-12] MEDS ORDERED: Bisacodyl 5 MG TAB PO PRN (16:38)
[2021-02-12] MEDS ORDERED: Ondansetron PF 4 MG/2 ML Vial IVP PRN (16:38)
[2021-02-12] MEDS ORDERED: Sodium Chloride 0.65% Nasal 44 ML BOT EA NARE PRN (16:38)
[2021-02-12] MEDS ORDERED: Bisacodyl 10 MG SUPP PR PRN (16:38)
[2021-02-12] MEDS ORDERED: hydrALAZINE 20 MG/ML VIAL SLOW IVP PRN (16:38)
[2021-02-12] MEDS ORDERED: Loratadine 10 MG TAB PO PRN (16:38)
[2021-02-12] MEDS ORDERED: Ondansetron ODT 4 MG TAB PO PRN (16:38)
[2021-02-12] MEDS ORDERED: Guaifenesin DM 100-10/5 ML UDCUP PO PRN (16:38)
[2021-02-12] MEDS ORDERED: Senokot S 8.6-50 MG TAB PO PRN ×2 (16:38)
[2021-02-12] MEDS ORDERED: Zolpidem Tartrate 5 MG TAB PO PRN (16:38)
[2021-02-12] MEDS ORDERED: HYDROcodone/Acetaminophen 5/325 mg Tablet PO PRN (16:38)
[2021-02-12] MEDS ORDERED: Cepastat Lozenges 1 LOZ PO PRN (16:38)
[2021-02-12] MEDS ORDERED: Hydrocerin (Eucerin) Cream 120 gm Jar TOP PRN (16:38)
[2021-02-12] MEDS ORDERED: Loperamide HCl 2 MG CAP PO PRN ×2 (16:38)
[2021-02-12] MEDS ORDERED: Artificial Tear Sol 15 ML BOT EA EYE PRN (16:38)
[2021-02-12] MEDS ORDERED: GUAIFENESIN SF SOLN 200 MG/10 ML UDCUP PO PRN (16:38)
[2021-02-12] MEDS ORDERED: Calcium Carbonate 500 MG ChewTAB PO PRN (16:38)
[2021-02-12] MEDS ORDERED: Acetaminophen 325 MG TAB PO PRN (16:38)
[2021-02-12] MEDS ORDERED: Benzonatate 100 MG CAP PO PRN (16:38)
[2021-02-12] MEDS ORDERED: cloNIDine 0.1 MG TAB PO PRN (16:38)
[2021-02-12 18:53] LABS: Troponin I Less than 0.010 ng/mL (< 0.028)
[2021-02-12] MEDS: Budesonide 0.5 MG/2 ML NEB NEB SCH (19:03)
[2021-02-12 21:08] LABS: Troponin I Less than 0.010 ng/mL (< 0.028)
[2021-02-12] MEDS: methylPREDNISolone Sod Succ 40 MG VIAL IVP SCH (22:05)
[2021-02-12] MEDS: guaiFENesin ER 600 MG TAB PO SCH (22:05)
[2021-02-13 05:23] LABS: #Lymphocytes 0.4 thou/uL (1.20-3.40); #Monocytes 0.1 thou/uL (0.11-0.59); #Neutrophils 5.3 thou/uL (1.40-6.50); %Basophils 0.1 % (0.0-1.0); %Eosinophils 0.4 % (0.0-10.0); %Lymphocytes 6.6 % (21.0-51.0); %Monocytes 1.3 % (0.0-10.0); %Neutrophils 91.6 % (42.0-75.0); Hemoglobin 10.2 g/dL (14.0-18.0); Mean Corpuscular HGB CONC 31.6 g/dL (32.0-36.0); Mean Corpuscular Volume 97.9 fL (78.0-98.0); Mean Platelet Volume 9.4 fL (7.4-10.4); Platelet Count 214 thou/uL (130-400); RBC Distribution Width 12.9 % (11.5-14.5); Red Blood Cell (RBC) Count 3.28 mill/uL (4.70-6.10); White Blood Cell (WBC) Count 5.8 thou/uL (4.8-10.8)
[2021-02-13 05:26] VITALS: BMI 32.9
[2021-02-13 05:46] LABS: ALT (SGPT) 16 U/L (8-55); AST (SGOT) 20 U/L (5-34); Albumin 3.7 g/dL (3.4-4.8); Alkaline Phosphatase 108 U/L (40-110); BUN (Urea Nitrogen) 38 mg/dL (8.4-25.7); Bilirubin, Total 0.4 mg/dL (0.2-1.2); Calc. Creatinine Clearance 46 mL/min (70-130); Calcium 9.9 mg/dL (7.8-10.44); Glucose 140 mg/dL (83-110); Protein, Total 7.7 g/dL (5.8-8.1)
[2021-02-13 05:55] LABS: Anion Gap 19 mmol/L (10-20); Carbon Dioxide 38 mmol/L (23-31); Chloride 83 mmol/L (98-107); Potassium 4.9 mmol/L (3.5-5.1); Sodium 135 mmol/L (136-145)
[2021-02-13] MEDS: methylPREDNISolone Sod Succ 40 MG VIAL IVP SCH ×3 (06:22→20:47)
[2021-02-13] MEDS: Budesonide 0.5 MG/2 ML NEB NEB SCH ×2 (07:43→19:34)
[2021-02-13] MEDS: guaiFENesin ER 600 MG TAB PO SCH ×2 (08:32→20:38)
[2021-02-13] MEDS: Aspirin 81 mg Enteric Coated Tablet PO SCH (08:32)
[2021-02-13 11:08] LABS: SARS-CoV-2 PCR by NAA Not Detected (NotDetected)
[2021-02-13] MEDS ORDERED: Furosemide 40 MG/4 ML VIAL SLOW IVP SCH (16:00)
[2021-02-13] MEDS ORDERED: Nitroglycerin 0.4 MG TAB (25 Tab Bottle) SL PRN (16:09)
[2021-02-13 16:41] LABS: INR-International Normal Ratio 1.8; Prothrombin Time 20.8 sec (12.0-14.7)
[2021-02-13 16:42] LABS: PTT 42.3 sec (22.9-36.1)
[2021-02-13] MEDS ORDERED: Warfarin Sodium 2.5 MG TAB PO SCH (18:00)
[2021-02-13] MEDS: Mometasone 100 MCG/Formoterol 5 MCG 120 PUFF INHALER INH SCH (19:33)
[2021-02-14] MEDS: methylPREDNISolone Sod Succ 40 MG VIAL IVP SCH ×3 (05:08→20:40)
[2021-02-14 05:55] LABS: INR-International Normal Ratio 1.6; Prothrombin Time 19.7 sec (12.0-14.7)
[2021-02-14] MEDS: Budesonide 0.5 MG/2 ML NEB NEB SCH ×2 (07:18→18:17)
[2021-02-14] MEDS: Mometasone 100 MCG/Formoterol 5 MCG 120 PUFF INHALER INH SCH ×2 (07:19→18:16)
[2021-02-14] MEDS ORDERED: Spironolactone 25 MG TAB PO SCH (09:00)
[2021-02-14] MEDS: guaiFENesin ER 600 MG TAB PO SCH ×2 (10:21→20:37)
[2021-02-14] MEDS: Aspirin 81 mg Enteric Coated Tablet PO SCH (10:21)
[2021-02-14 11:23] LABS: Phosphorus 3.8 mg/dL (2.3-4.7)
[2021-02-14 11:25] LABS: BUN (Urea Nitrogen) 62 mg/dL (8.4-25.7); Calc. Creatinine Clearance 38 mL/min (70-130); Calcium 9.6 mg/dL (7.8-10.44); Glucose 151 mg/dL (83-110); Magnesium 2.1 mg/dL (1.6-2.6)
[2021-02-14 11:34] LABS: Anion Gap 21 mmol/L (10-20); Carbon Dioxide 33 mmol/L (23-31); Chloride 87 mmol/L (98-107); Potassium 4.3 mmol/L (3.5-5.1); Sodium 137 mmol/L (136-145)
[2021-02-14] MEDS: Warfarin Sodium 2.5 MG TAB PO SCH (17:52)
[2021-02-15 05:24] LABS: INR-International Normal Ratio 1.5; Prothrombin Time 18.6 sec (12.0-14.7)
[2021-02-15] MEDS: methylPREDNISolone Sod Succ 40 MG VIAL IVP SCH ×2 (05:28→13:42)
[2021-02-15] MEDS: Mometasone 100 MCG/Formoterol 5 MCG 120 PUFF INHALER INH SCH ×2 (07:15→19:59)
[2021-02-15] MEDS: Budesonide 0.5 MG/2 ML NEB NEB SCH ×2 (07:15→19:59)
[2021-02-15 08:58] LABS: BUN (Urea Nitrogen) 64 mg/dL (8.4-25.7); Calc. Creatinine Clearance 39 mL/min (70-130); Calcium 9.2 mg/dL (7.8-10.44); Glucose 146 mg/dL (83-110)
[2021-02-15 09:07] LABS: Anion Gap 18 mmol/L (10-20); Carbon Dioxide 35 mmol/L (23-31); Chloride 90 mmol/L (98-107); Potassium 4.5 mmol/L (3.5-5.1); Sodium 138 mmol/L (136-145)
[2021-02-15] MEDS: Aspirin 81 mg Enteric Coated Tablet PO SCH (09:54)
[2021-02-15] MEDS: guaiFENesin ER 600 MG TAB PO SCH ×2 (09:54→19:49)
[2021-02-15] MEDS: Warfarin Sodium 2.5 MG TAB PO SCH (18:01)
[2021-02-16 05:25] LABS: INR-International Normal Ratio 1.6; Prothrombin Time 19.5 sec (12.0-14.7)
[2021-02-16] MEDS: Budesonide 0.5 MG/2 ML NEB NEB SCH (07:26)
[2021-02-16] MEDS: Mometasone 100 MCG/Formoterol 5 MCG 120 PUFF INHALER INH SCH (07:27)
[2021-02-16] MEDS ORDERED: predniSONE 50 MG TAB PO SCH (08:00)
[2021-02-16] MEDS: Aspirin 81 mg Enteric Coated Tablet PO SCH (08:26)
[2021-02-16] MEDS: guaiFENesin ER 600 MG TAB PO SCH (08:26)
[2021-02-16 08:51] VITALS: BP 153/74; TEMP 97.5
== END 2021-02-16 11:00 | DRG 190 ==
LOC: EEVIPCON 13:59 → ERS 13:59 → NEURO 16:33
PROVIDERS: ADMIT Internal Medicine; ATTEND Internal Medicine
DX: J44.1 Chronic obstructive pulmonary disease with (acute) exacerbation (principal); J96.21 Acute and chronic respiratory failure with hypoxia; I50.33 Acute on chronic diastolic (congestive) heart failure; I48.21 Permanent atrial fibrillation; I13.0 Hypertensive heart and chronic kidney disease with heart failure and stage 1 through stage 4 chronic kidney disease, or unspecified chronic kidney disease; I25.10 Atherosclerotic heart disease of native coronary artery without angina pectoris; E87.5 Hyperkalemia; E66.9 Obesity, unspecified; N40.0 Benign prostatic hyperplasia without lower urinary tract symptoms; D64.9 Anemia, unspecified; E78.5 Hyperlipidemia, unspecified; K21.9 Gastro-esophageal reflux disease without esophagitis; Z20.822 Contact with and (suspected) exposure to COVID-19; N18.9 Chronic kidney disease, unspecified; Z68.33 Body mass index [BMI] 33.0-33.9, adult; Z99.81 Dependence on supplemental oxygen; Z79.01 Long term (current) use of anticoagulants; Z79.51 Long term (current) use of inhaled steroids; Z79.82 Long term (current) use of aspirin; Z79.899 Other long term (current) drug therapy; Z98.61 Coronary angioplasty status
CPT/HCPCS: 36415; 70450; 71045; 76770; 80048; 80053; 83735; 83880; 84100; 84484; 85025; 85610; 85730; 93005; 93306; 94640; 96365; 96366; 96367; 96375; J1940; J1956; J2920; J2930; J3475; J7512; J7611; J7620; J7626; U0003; U0005